=== PATIENT | male | born 1950 | race Caucasian/White ===

== ENCOUNTER 2018-01-15 09:59 | Emergency (ER) | payer MEDICARE, OTHER ==
[~2018-01-15] VITALS: Ht 170.2 cm; Wt 86.2 kg
[~2018-01-15 09:59] MED LIST: ALBUTEROL INH; ALPRAZOLAM 0.50.5 M1 PO; AMBIEN 10 MG TA10 MG PO; ASPIRIN81 M2 PO; ATIVAN0.5 M1 PO; ATORVASTATIN CA40 MG PO; BENADRYL25 MG PO; BYSTOLIC 5 MG5 M1 PO; CARISOPRODL-AS1 EACH PO; CEFDINIR300 MG PO; CEFUROXIME250 MG PO; FLEXERIL PO; HYDROCODON-ACE1 EAC5 PO; HYDROCODON-ACE1 EAC7 PO; LOSARTAN POTAS100 MG PO; MAGNESIUM PO; NOHOMEMEDICATIONS; NORCO 5-325 TA1 EACH PO; OMEPRAZOLE 20 M20 M1 PO; PERCOCET PO; PHENERGAN 25 MG25 M1 PO; PREDNISONE 10 M10 M1 PO; PREDNISONE 20 M20 M1 PO; SIMVASTATIN40 MG PO; TIROSINT100 MCG PO; TIROSINT75 MCG PO; TOPROL XL25 MG; TOPROL XL25 MG PO; TRIAMTERENE-HC1 EAC2 PO; ZANTAC 7575 MG PO; ZOFRAN4 MG PO
[2018-01-15] MEDS ORDERED: TOPROL XL25 MG PO (10:12)
[2018-01-15] MEDS ORDERED: LOPRESSOR25 PO (10:12)
[2018-01-15] MEDS ORDERED: NICARDIPINE HCL20 MG PO (10:13)
[2018-01-15] MEDS ORDERED: DIOVAN320 MG PO (10:13)
[2018-01-15] MEDS ORDERED: ONFI2.5 MG/1 M PO (10:13)
[2018-01-15 10:36] LABS: INFLUENZA A ANTIGEN None Detected (None Detect); INFLUENZA B ANTIGEN None Detected (None Detect)
[2018-01-15] MEDS ORDERED: TESSALON PERLE100 MG PO (10:59)
[2018-01-15] MEDS ORDERED: MAGIC MOUTHWASH SWISH&SPIT (11:02)
[2018-01-15 11:16] VITALS: BP 174/103
== END 2018-01-15 11:17 | disposition home or self-care (01) ==
LOC: M.ERS 09:59
PROVIDERS: Physician Assistant
DX: J20.9 Acute bronchitis, unspecified (principal); Z86.2 Personal history of diseases of the blood and blood-forming organs and certain disorders involving the immune mechanism; Z85.46 Personal history of malignant neoplasm of prostate; Z88.8 Allergy status to other drugs, medicaments and biological substances; Z88.5 Allergy status to narcotic agent